=== PATIENT | female | born 1985 ===

== ENCOUNTER 2021-03-31 06:27 | Day surgery (SDC) | payer OTHER ==
[~2021-03-31 06:27] MED LIST: IRON PO; PRENATAL PO
== END 2021-03-31 15:20 | disposition home or self-care (01) ==
LOC: CIR.AMB 06:27
PROVIDERS: ATTEND Obstetrics & Gynecology Maternal & Fetal Medicine
DX: N84.0 Polyp of corpus uteri (principal); Z20.822 Contact with and (suspected) exposure to COVID-19

== ENCOUNTER 2021-09-14 08:59 | Outpatient (CLI) | payer OTHER | END 2021-09-14 09:17 | disposition home or self-care (01) | LOC: RX STUDY 08:59 | PROVIDERS: ATTEND Obstetrics & Gynecology Maternal & Fetal Medicine | DX: N80.9 Endometriosis, unspecified (principal); D25.9 Leiomyoma of uterus, unspecified ==